=== PATIENT | female | born 1980 | race Two or more races ===

== ENCOUNTER 2016-11-22 23:36 | Emergency (ER) | payer BC ==
--- NOTE | ~2016-11-22 | ER ---
PATIENT'S NAME: COLE MACEDO [facility] AGE: 36 Y [address] ROOM: [place], [place] [address] LOCATION: [facility] ADMIT DATE: 11/22/2016 ER/Outpatient Report DISCHARGE DATE: 11/23/2016 FAMILY PHYSICIAN: Physician, Unknown ATTENDING PHYSICIAN: Ambrosio Gr Admission date and time documented in the medical record. I saw the patient at 2315 hours. CHIEF COMPLAINT: Medical clearance. HISTORY OF PRESENT ILLNESS: The patient is a 36-year-old female, who was brought to the emergency department by [facility] for medical clearance. She states that her left shoulder hurts. She has had a previous history of rotator cuff tear with repair by Dr. Villagran. She had a steroid injection in her left shoulder about a week and a half ago. She does have a history of hypertension, COPD, and non-insulin- dependent diabetes mellitus. No recent colds, coughs, flus, fever, chills, or sweats. The patient is intoxicated. No other complaints. No fall or trauma. Arm started to hurt when they handcuffed her hands behind her back. HOME MEDICATIONS: See attached medication list. ALLERGIES: SULFA AND TRAMADOL. SOCIAL HISTORY: The patient smokes about a half pack of cigarettes per day. Does drink alcohol. SIGNIFICANT PAST MEDICAL HISTORY: Tobacco abuse, hypertension, COPD, sjj-ltccgaj-ikzyagacy diabetes mellitus. OPERATIONS: Left biceps tear repair and rotator cuff tear repair. REVIEW OF SYSTEMS: All systems reviewed by me are negative with the exception of those discussed in the history of present illness. PHYSICAL EXAMINATION: VITAL SIGNS: Temperature 98, the patient refused blood pressure, pulse, respirations, oximetry. PATIENT'S NAME: COLE MACEDO [facility] AGE: 36 Y [address] ROOM: [place], [place] [address] LOCATION: [facility] ADMIT DATE: 11/22/2016 ER/Outpatient Report DISCHARGE DATE: 11/23/2016 FAMILY PHYSICIAN: Physician, Unknown ATTENDING PHYSICIAN: Ambrosio Gr HEAD: Normocephalic. Eyes, clear. Ears, clear TMs bilaterally. Nose and Throat: Clear. Mucous membranes moist. Teeth and jaw intact. NECK: No nuchal rigidity. No thyromegaly or cervical adenopathy. No tenderness. SPINE: Negative. LUNGS: Clear. Good air flow. No rales, rhonchi, or wheezes. HEART: Regular. Pulses are palpable. No chest wall or ribcage pain to palpation. ABDOMEN: Soft, nondistended, nontender. Good bowel tones. No organomegaly or abnormal mass palpable. PELVIS: Stable. EXTREMITIES: Moves all 4 extremities. She has some tenderness in the left shoulder, but there is no deformity, no swelling, and as far as I can tell, she has good range of motion. There is no real point tenderness anywhere. Muscles are intact with good strength. No peripheral edema, cyanosis, or deformity. NEUROVASCULAR: Intact. SKIN: Clear. IMPRESSION: 1. Medical clearance. 2. Left shoulder pain, chronic. 3. Acute alcohol intoxication and alcohol abuse. PLAN: The patient was discharged from the emergency department in [facility] custody for assisted. MD JUAN CORMIER/modl /[id number] d: 11/23/16139 t: 11/23/16 1813, OUTPATIENT REPORT
== END 2016-11-23 00:14 | disposition disaster alternative care site (69) ==
LOC: GMED 23:36
DX: F10.129 Alcohol abuse with intoxication, unspecified (principal); M25.512 Pain in left shoulder; G89.29 Other chronic pain; F17.210 Nicotine dependence, cigarettes, uncomplicated; I10 Essential (primary) hypertension; E11.9 Type 2 diabetes mellitus without complications; Z88.2 Allergy status to sulfonamides; Z88.8 Allergy status to other drugs, medicaments and biological substances